=== PATIENT | female | born 1990 | race Caucasian/White ===

== ENCOUNTER 2017-05-13 20:10 | Emergency (ER) | payer OTHER ==
--- NOTE | 2017-05-13 21:55 | ED ---
URI HPI - General Chief Complaint: Headache Stated Complaint: 16 weeks /Headache/Fever Time Seen by Provider: 05/13/17 21:09 Source: patient Mode of arrival: ambulatory Limitations: no limitations - History of Present Illness Initial Comments: This patient is a 26-year-old woman who presents with a constellation of symptoms that started on Sunday evening. The patient states that she had to leave work early that night when she started feeling fatigued and having some mild myalgias. She woke the next morning continuing to have the myalgias and she also had some postnasal drip and then developed a little bit of sore throat. Over the course of the next day she also felt like her eyes were burning and she was having some mild frontal headache. She also felt warm but they did not find a fever when she registered in. MD Complaint: sore throat, rhinorrhea -: days(s) Consistency: constant Improves With: nothing Worsens With: nothing Associated Symptoms: myalgias, headache, rhinorrhea, sore throat - Related Data Home Medications Medication Instructions Recorded Confirmed Acetaminophen Tab [Tylenol Tab] 1,000 mg PO Q6HR PRN 05/13/17 05/13/17 Metoclopramide [Reglan] 10 mg PO QID PRN 05/13/17 05/13/17 Allergies Allergy/AdvReac Type Severity Reaction Status Date / Time No Known Allergies Allergy Verified 05/13/17 21:49 Review of Systems ROS Statement: Those systems with pertinent positive or pertinent negative responses have been documented in the HPI. ROS Other: All systems not noted in ROS Statement are negative. Constitutional: Reports: fever. Denies: chills (Reactive) Eyes: Reports: as per HPI, eye pain ENT: Reports: throat pain, congestion Respiratory: Denies: cough, dyspnea Cardiovascular: Denies: chest pain, palpitations Gastrointestinal: Denies: abdominal pain, nausea, vomiting Genitourinary: Denies: dysuria, hematuria Musculoskeletal: Reports: myalgia. Denies: back pain, joint swelling Skin: Denies: rash Neurological: Reports: as per HPI, headache. Denies: weakness, numbness, paresthesias, confusion Past Medical History Past Medical History: No Reported History History of Any Multi-Drug Resistant Organisms: None Reported Past Surgical History: Section Additional Past Surgical History / Comment(s): cyst removal from ovary Past Psychological History: No Psychological Hx Reported Smoking Status: Former smoker Past Alcohol Use History: None Reported Past Drug Use History: None Reported General Exam Limitations: no limitations General appearance: alert, in no apparent distress Head exam: Present: atraumatic, normocephalic Eye exam: Present: normal appearance. Absent: scleral icterus, conjunctival injection ENT exam: Present: mucous membranes moist, TM's normal bilaterally, normal external ear exam, other (There is some injection of the pharynx and also cobblestoning. The uvula is midline without any edema.). Absent: normal oropharynx Neck exam: Present: normal inspection, full ROM, lymphadenopathy. Absent: tenderness, meningismus (I lateral) Respiratory exam: Present: normal lung sounds bilaterally. Absent: respiratory distress, wheezes, rales, rhonchi, stridor Cardiovascular Exam: Present: regular rate, normal rhythm, normal heart sounds. Absent: systolic murmur, diastolic murmur, rubs, gallop GI/Abdominal exam: Present: soft. Absent: distended, tenderness, guarding, rebound, mass Extremities exam: Present: normal inspection, normal capillary refill. Absent: pedal edema, calf tenderness Back exam: Present: normal inspection. Absent: CVA tenderness (R), CVA tenderness (L) Neurological exam: Present: alert Skin exam: Present: warm, dry, intact, normal color. Absent: rash Course Vital Signs 05/13/17 21:01 Temperature 97.8 F Pulse Rate 109 H Respiratory 20 Rate Blood Pressure 121/69 O2 Sat by Pulse 97 Oximetry Medical Decision Making - Lab Data Lab Results 05/13/17 Range/Units 21:42 Group A Strep Rapid Negative (Negative) Disposition Clinical Impression: Viral syndrome Disposition: HOME SELF-CARE Condition: Fair Instructions: Viral Syndrome (ED) Referrals: Aman Wyatt MD [Primary Care Provider] - 1-2 days
[2017-05-13 22:26] VITALS: BP 124/67; PULSE 100; RESP 18; TEMP 99.5
== END 2017-05-13 22:26 | disposition home or self-care (01) ==
LOC: EC 20:10
DX: O98.512 Other viral diseases complicating pregnancy, second trimester (principal); B34.9 Viral infection, unspecified; Z87.891 Personal history of nicotine dependence
CPT/HCPCS: 87081; 87430; 99284

== ENCOUNTER → 2017-08-20 | Outpatient (CLI) | payer OTHER ==
[2017-08-20 12:38] LABS: Glucose 3 Hour, Gest 85 mg/dL
== END | disposition home or self-care (01) ==
LOC: LABWHC1 07:22
PROVIDERS: ATTEND Obstetrics & Gynecology
DX: Z36.9 Encounter for antenatal screening, unspecified (principal)
CPT/HCPCS: 36415; 82951; 82952

== ENCOUNTER 2020-12-13 18:53 | Emergency (ER) | payer BC, OTHER ==
[2020-12-13 19:26] VITALS: RESP 18
--- NOTE | 2020-12-13 20:20 | XR ---
EXAMINATION TYPE: XR chest 2V DATE OF EXAM: 12/13/2020 COMPARISON: NONE HISTORY: Cough and congestion TECHNIQUE: 2 views FINDINGS: Heart and mediastinum are normal. There is coarse interstitial diffuse infiltrate in the asha ngs. There is poor inspiration. There is no pleural effusion. There are no hilar masses. IMPRESSION: There is a diffuse interstitial pneumonia that is new compared to old exam. Normal heart.
[2020-12-13] MEDS ORDERED: ACETAMINOPHEN TAB 500 MG TAB PO STA (20:30)
[2020-12-13] MEDS ORDERED: SODIUM CHLORIDE 0.9% 1,000 ML IV STA (20:32)
[2020-12-13] MEDS ORDERED: ONDANSETRON 4 MG/2 ML VIAL IVP STA (20:32)
[2020-12-13] MEDS ORDERED: IBUPROFEN 600 MG TAB PO STA (20:32)
[2020-12-13 21:01] LABS: Basophils % (A) 0 %; Eosinophils % (A) 0 %; HCT 42.2 % (34.0-46.0); HGB 14.4 gm/dL (11.4-16.0); Lymphocytes # (A) 0.4 k/uL (1.0-4.8); Lymphocytes % (A) 18 %; MCH 28.8 pg (25.0-35.0); MCHC 34.2 g/dL (31.0-37.0); MCV 84.3 fL (80.0-100.0); Mean Platelet Volume 10.4; Monocytes # (A) 0.1 k/uL (0-1.0); Monocytes % (A) 5 %; Neutrophils # (A) 1.8 k/uL (1.3-7.7); Neutrophils % (A) 75 %; RBC 5.01 m/uL (3.80-5.40); RDW 12.7 % (11.5-15.5); WBC 2.4 k/uL (3.8-10.6)
--- NOTE | 2020-12-13 21:06 | ED ---
SOB HPI - General Chief Complaint: Shortness of Breath Stated Complaint: Covid+, SOB Time Seen by Provider: 12/13/20 20:12 Source: patient Mode of arrival: ambulatory Limitations: no limitations - History of Present Illness Initial Comments: Patient is a 30-year-old female presenting to the emergency Department with complaints of shortness of breath, fever for the past week. Patient states her symptoms started 6 days ago, she was tested the very next morning for Covid and it was positive. Patient states her symptoms started out as fever, body aches and chills. She states her fever has persisted, she is only been taking Tylenol. Her last dose of Tylenol was yesterday. She did not take anything today. She is complaining of chest burning when she coughs, shortness of breath, fatigue, body aches, nausea and loss of taste and smell. Patient states her appetite has been very low. He denies history of asthma, COPD, she is a nonsmoker. She takes no daily medications. His history of heart disease. She denies being . She has no further complaints at this time. Upon arrival to the ER, her temperature is 100.1 degrees, pulse is 98, respiratory 18, BP is 106/79, 96% on room air. - Related Data Home Medications Medication Instructions Recorded Confirmed Acetaminophen Tab [Tylenol Tab] 1,000 mg PO Q6HR PRN 05/13/17 12/13/20 [id number] 600/30MG [Mucinex 1 tab PO Q12HR PRN 12/13/20 12/13/20 Dm] Previous Rx's Medication Instructions Recorded Albuterol Inhaler [Ventolin Hfa 1 puff INHALATION RT-QID PRN #1 12/13/20 Inhaler] puff Azithromycin [Zithromax Z-pack (6 0 mg PO DIRECTED #1 pack 12/13/20 tabs)] Dexamethasone [Decadron] 6 mg PO DAILY 5 Days #5 tablet 12/13/20 Ondansetron Odt [Zofran Odt] 4 mg PO Q8HR PRN #10 tab 12/13/20 Allergies Allergy/AdvReac Type Severity Reaction Status Date / Time No Known Allergies Allergy Verified 12/13/20 21:02 Review of Systems ROS Statement: Those systems with pertinent positive or pertinent negative responses have been documented in the HPI. ROS Other: All systems not noted in ROS Statement are negative. Past Medical History Past Medical History: No Reported History History of Any Multi-Drug Resistant Organisms: None Reported Past Surgical History: Section Additional Past Surgical History / Comment(s): cyst removal from ovary Past Psychological History: No Psychological Hx Reported Smoking Status: Never smoker Past Alcohol Use History: None Reported Past Drug Use History: None Reported General Exam - General Exam Comments Initial Comments: GENERAL: Patient is well-developed and well-nourished. Patient is nontoxic and in mild distress. HEAD: Atraumatic, normocephalic. EYES: Pupils equal round and reactive to light, extraocular movements intact, sclera anicteric, conjunctiva are normal. Eyelids were unremarkable. ENT: TMs normal, nares patent, oropharynx clear without exudates. Moist mucous membranes. NECK: Normal range of motion, supple without lymphadenopathy or JVD. LUNGS: Unlabored respirations. Breath sounds clear to auscultation bilaterally and equal. No wheezes rales or rhonchi. HEART: Regular rate and rhythm without murmurs, rubs or gallops. ABDOMEN: Soft, nontender, normoactive bowel sounds. No guarding, no rebound. No masses appreciated. : Deferred MUSCULOSKELETAL: Normal extremities with adequate strength and normal range of motion, no pitting or edema. No clubbing or cyanosis. NEUROLOGICAL: Patient is alert and oriented x 3. Motor and sensory are also intact. Cranial nerves II through XII grossly intact. Symmetrical smile. Normal speech, normal gait. PSYCH: Normal mood, normal affect. SKIN: Warm, Dry, normal turgor, no rashes or lesions noted. Limitations: no limitations Course Vital Signs 12/13/20 12/13/20 12/13/20 19:22 20:21 22:00 Temperature 100.9 F H 101 F H 99.4 F Pulse Rate 111 H 98 80 Respiratory 18 18 18 Rate Blood Pressure 82/59 106/79 93/50 O2 Sat by Pulse 95 96 92 L Oximetry Medical Decision Making - Medical Decision Making Patient is a 30-year-old female presenting for Covid symptoms for 6 days. Patient tested positive for Covid 5 days ago. She is complaining of continued fevers, shortness of breath, chest burning when she coughs, nausea. Her last dose of Tylenol was yesterday. She did arrive febrile, slightly tachycardia. Her exam is unremarkable, no acute findings. EKG is normal. X-ray shows diffuse interstitial pneumonia. Labs show white count 2.4, sodium is slightly low at 132, CRP is 40. Patient was given Tylenol and Motrin, fluids and Zofran. Patient meets criteria for Covid antiviral. Patient's vital signs have improved, temperature is normal. Patient was observed for 1 hour post antiviral treatment. No adverse effects. Patient is stable for discharge. We'll continue her on oral steroids at home as well as an inhaler, and antibiotics. She is in agreement this plan of care. Return parameters were discussed the patient she verbalized understanding. Case discussed with Dr. Ferrari. - Lab Data Result diagrams: 12/13/20 20:30 12/13/20 20:30 Lab Results 12/13/20 12/13/20 12/13/20 Range/Units 20:30 20:30 20:30 WBC 2.4 L (3.8-10.6) k/uL RBC 5.01 (3.80-5.40) m/uL Hgb 14.4 (11.4-16.0) gm/dL Hct 42.2 (34.0-46.0) % MCV 84.3 (80.0-100.0) fL MCH 28.8 (25.0-35.0) pg MCHC 34.2 (31.0-37.0) g/dL RDW 12.7 (11.5-15.5) % Plt Count 87 L (150-450) k/uL MPV 10.4 Neutrophils % 75 % Lymphocytes % 18 % Monocytes % 5 % Eosinophils % 0 % Basophils % 0 % Neutrophils # 1.8 (1.3-7.7) k/uL Lymphocytes # 0.4 L (1.0-4.8) k/uL Monocytes # 0.1 (0-1.0) k/uL Eosinophils # 0.0 (0-0.7) k/uL Basophils # 0.0 (0-0.2) k/uL Sodium 132 L (137-145) mmol/L Potassium 4.1 (3.5-5.1) mmol/L Chloride 101 (98-107) mmol/L Carbon Dioxide 24 (22-30) mmol/L Anion Gap 7 mmol/L BUN 9 (7-17) mg/dL Creatinine 0.59 (0.52-1.04) mg/dL Est GFR (CKD-EPI)AfAm >90 (>60 ml/min/1.73 sqM) Est GFR (CKD-EPI)NonAf >90 (>60 ml/min/1.73 sqM) Glucose 103 H (74-99) mg/dL Plasma Lactic Acid Mann 0.7 (0.7-2.0) mmol/L Calcium 8.5 (8.4-10.2) mg/dL Total Bilirubin 0.5 (0.2-1.3) mg/dL AST 44 H (14-36) U/L ALT 36 H (4-34) U/L Alkaline Phosphatase 46 (38-126) U/L C-Reactive Protein 40.1 H (<10.0) mg/L Total Protein 6.8 (6.3-8.2) g/dL Albumin 3.9 (3.5-5.0) g/dL - EKG Data EKG Comments: Normal sinus rhythm, normal ECG, no signs of an acute process. Ventricular rate 86, AL interval 170, QT 350. Disposition Clinical Impression: Pneumonia due to COVID-19 virus, Nausea Disposition: HOME SELF-CARE Condition: Stable Instructions (If sedation given, give patient instructions): Coronavirus Diseas e 2019 (COVID-19) Additional Instructions: Please return to the Emergency Department if symptoms worsen or any other concerns. Continue to alternate between Tylenol and Motrin for fever control. Increase water intake. May take Zofran for any nausea. Use inhaler as needed for shortness of breath, take antibiotic as prescribed. Follow-up with your PCP. Prescriptions: Dexamethasone [Decadron] 6 mg PO DAILY 5 Days #5 tablet Albuterol Inhaler [Ventolin Hfa Inhaler] 1 puff INHALATION RT-QID PRN #1 puff PRN Reason: Shortness Of Breath Azithromycin [Zithromax Z-pack (6 tabs)] 0 mg PO DIRECTED #1 pack Ondansetron Odt [Zofran Odt] 4 mg PO Q8HR PRN #10 tab PRN Reason: Nausea Is patient prescribed a controlled substance at d/c from ED?: No Referrals: Aman Wyatt MD [Primary Care Provider] - 1-2 days
[2020-12-13 21:08] LABS: Platelet Count 87 k/uL (150-450)
[2020-12-13 21:22] LABS: ALT 36 U/L (4-34); AST 44 U/L (14-36); African American GFR (CKD) >90 (>60 ml/min/1.73 sqM); Albumin 3.9 g/dL (3.5-5.0); Alkaline Phosphatase 46 U/L (38-126); Blood Urea Nitrogen 9 mg/dL (7-17); C Reactive Protein 40.1 mg/L (<10.0); Calcium 8.5 mg/dL (8.4-10.2); Carbon Dioxide 24 mmol/L (22-30); Glucose 103 mg/dL (74-99); Non-African American GFR(CKD) >90 (>60 ml/min/1.73 sqM); Total Bilirubin 0.5 mg/dL (0.2-1.3); Total Protein 6.8 g/dL (6.3-8.2)
[2020-12-13 21:26] LABS: Anion Gap 7 mmol/L; Chloride 101 mmol/L (98-107); Potassium 4.1 mmol/L (3.5-5.1); Sodium 132 mmol/L (137-145)
[2020-12-13] MEDS ORDERED: BAMLANIVIMAB 700 MG in SODIUM CHLORIDE 0.9% 50 ML IVPB ONE (22:00)
[2020-12-13 23:37] VITALS: BP 111/71; PULSE 81; TEMP 98.7
== END 2020-12-13 23:43 | disposition home or self-care (01) ==
LOC: EC 18:53
DX: U07.1 COVID-19 (principal); J12.82 Pneumonia due to coronavirus disease 2019
CPT/HCPCS: 36415; 93005; 80053; 83605; 85025; 86140; 87040; 71046; 99285; J2405; Q0239